=== PATIENT | female | born 2000 | race Caucasian/White ===

== ENCOUNTER 2025-05-24 14:31 | Emergency (ER) | payer MEDICAID ==
[~2025-05-24] VITALS: Ht 162.6 cm; Wt 73.0 kg
[2025-05-24 14:47] VITALS: BP 120/80; PULSE 90; RESP 16; TEMP 36.8; O2SAT 99
== END 2025-05-24 16:30 | disposition left against medical advice (07) ==
LOC: ER 14:31
DX: F41.9 Anxiety disorder, unspecified (principal); R07.9 Chest pain, unspecified; Z53.21 Procedure and treatment not carried out due to patient leaving prior to being seen by health care provider
CPT/HCPCS: 93005

== ENCOUNTER 2025-06-10 09:55 | Emergency (ER) | payer MEDICAID ==
[~2025-06-10] VITALS: Ht 162.6 cm; Wt 66.0 kg
[2025-06-10 10:02] VITALS: O2SAT 96
[2025-06-10 10:23] LABS: CLARITY URINE CLEAR (CLEAR); COLOR URINE YELLOW (YELLOW); GLUCOSE URINE NEGATIVE (NEGATIVE); KETONES URINE NEGATIVE (NEGATIVE); LEUKOCYTE ESTERASE URINE TRACE (NEGATIVE); NITRITE URINE NEGATIVE (NEGATIVE); OCCULT BLOOD URINE NEGATIVE (NEGATIVE); PH URINE 6.0 (4.5-8.0); PROTEIN URINE NEGATIVE (NEGATIVE); SPECIFIC GRAVITY URINE 1.019 (1.005-1.030); UROBILINOGEN URINE 0.2 E.U./dL (0.2-1.0)
[2025-06-10 10:24] LABS: BASOPHILS % 0.6 % (0.0-2.0); EOSINOPHILS % 1.9 % (0.0-5.0); HEMATOCRIT. 37.9 % (36.0-48.0); HEMOGLOBIN. 12.7 g/dL (12.0-16.0); LYMPHOCYTES % 18.0 % (20.0-50.0); MEAN PLATELET VOLUME 8.0 fl (7.4-10.4); MONOCYTES % 5.1 % (2.0-8.0); NEUTROPHILS % 74.4 % (40.0-76.0); PLATELET 284 x1000/uL (130-400); RED BLOOD CELL COUNT 4.21 mill/uL (4.2-5.4); RED CELL DISTRIBUTION WIDTH 13.9 % (11.6-14.6)
[2025-06-10 10:34] LABS: SQUAMOUS EPITHELIAL CELL URINE 1+ /lpf (RARE/1+)
[2025-06-10] MEDS: MAGNESIUM/ALUMINUM HYDROXIDE/SIMETHICONE 30ML UDC PO ONE (10:34)
[2025-06-10] MEDS: FAMOTIDINE 20MG TABLET PO ONE (10:34)
[2025-06-10 10:35] LABS: BACTERIA URINE 1+; RBC URINE NONE SEEN /hpf (0-2); WBC URINE 0-2 /hpf (0-2); YEAST URINE NONE SEEN
[2025-06-10 10:37] LABS: HCG SCREEN NEGATIVE
[2025-06-10 10:43] LABS: CREATININE 0.5 mg/dL (0.6-1.0); UREA NITROGEN BLOOD 6 mg/dL (9-23)
[2025-06-10 10:45] LABS: ASPARTATE AMINOTRANSFERASE 19 IU/L (<34); BILIRUBIN DIRECT 0.1 mg/dL (<=3.0); BILIRUBIN TOTAL 0.5 mg/dL (0.1-1.0); PROTEIN TOTAL 7.1 g/dL (6.0-8.3)
[2025-06-10 12:04] VITALS: BP 112/65; PULSE 72; RESP 16; TEMP 37.1; O2SAT 99
== END 2025-06-10 12:05 | disposition home or self-care (01) ==
LOC: ER 09:55
DX: G89.29 Other chronic pain (principal); R10.12 Left upper quadrant pain
CPT/HCPCS: 80076; 80048; 81003; 81025; 84703; 83690; 85025; 36415; 76700; 99284; Z7610